=== PATIENT | male | born 1960 | race Asian ===

== ENCOUNTER 2023-04-20 19:02 | Emergency (ER) | payer OTHER ==
[~2023-04-20] VITALS: Ht 160 cm; Wt 80.0 kg
[~2023-04-20 19:02] MED LIST: ALBU18HF12 IH; AMOX1TAB15 PO; ATEN-73 PO; ATOR20TA PO; CICL6.1H2 IH; CLIN300C58 PO; ETHY1MED2 NASAL; METF-1211 PO
[2023-04-20 21:30] VITALS: BP 127/73
[2023-04-20] MEDS ORDERED: LIDOCAINE 1% 10 ML VIAL SQ ONE (21:30)
[2023-04-20] MEDS ORDERED: CefTRIAXone SODIUM 1 GM/VIAL IM ONE (23:00)
[2023-04-20] MEDS ORDERED: LIDOCAINE/PF 1% 2 ML VIAL IM ONE (23:00)
[2023-04-20] MEDS ORDERED: HYDROCODONE/ACETAMINOPHEN 5-325 MG TABLET PO ONE (23:15)
== END 2023-04-20 23:24 | disposition home or self-care (01) ==
LOC: EMS 19:08
DX: L02.01 Cutaneous abscess of face (principal); J45.909 Unspecified asthma, uncomplicated; E11.9 Type 2 diabetes mellitus without complications; E78.00 Pure hypercholesterolemia, unspecified; I10 Essential (primary) hypertension
CPT/HCPCS: 99283; 10060; 87205; 96372; 87070; J0696; J3490 ×2; 87186